=== PATIENT | female | born 2000 | race Caucasian/White ===

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

== ENCOUNTER 2021-11-04 07:14 | Emergency (ER) | payer MEDICAID, SELFPAY ==
[2021-11-04 07:29] VITALS: BP 103/65; PULSE 101; RESP 18; TEMP 37.9; O2SAT 99; BMI 20.3
[2021-11-04] MEDS: Ondansetron ODT 4 MG TAB.RAPDIS TRANSLINGU (07:35)
--- NOTE | 2021-11-04 08:07 | ED_ITS ---
HPI - General Adult General Chief complaint: General Medical Stated complaint: +Flu T-3 /Vomiting, cough Time Seen by Provider: 11/04/21 08:07 Source: patient Mode of arrival: ambulatory Limitations: no limitations History of Present Illness HPI narrative: Patient is a 21 year old female presenting to the emergency department today with influenza. Patient states that 2 days ago, she was diagnosed with influenza at [facility] and still feels generally unwell. Patient states that she would like a bag of fluids. Patient denies any dizziness, lightheadedness, abdominal pain, fever, chills, blurry vision, double vision, loss of vision, chest pain, difficulty breathing, shortness of breath, back pain, night sweats, pain with urination, increased urinary frequency, increased urinary urgency, blood in her urine or stool, syncope or a near syncopal episode, recent trauma or falls, bowel incontinence, bladder incontinence, bowel retention, bladder retention, or any other complaints at this time. Onset (ago): day(s) (4) Severity: mild Severity scale (1-10): 2 Relieving factors: none Exacerbating factors: none Associated symptoms: cough and nausea/vomiting Treatments prior to arrival: none Related Data Previous Rx's Medication Instructions Recorded ondansetron HCl 4 mg tablet 4 mg PO Q8H PRN #10 tab 07/08/20 (Zofran) acetaminophen 500 mg tablet 500 mg PO Q6H PRN #20 tab 12/09/20 (Tylenol Extra Strength) amoxicillin 875 mg-potassium 1 tab PO Q12H 7 Days #14 tab 12/09/20 clavulanate 125 mg tablet (Augmentin) benzonatate 100 mg capsule 100 mg PO TID PRN #14 cap 12/09/20 (Tessalon Perles) fluticasone propionate 50 2 spray INTRANASAL DAILY #16 g 12/09/20 mcg/actuation nasal spray,suspension (Flonase Allergy Relief) ibuprofen 400 mg tablet 400 mg PO Q6H 7 Days #28 tab 12/09/20 ondansetron 4 mg disintegrating 4 mg PO Q8H 3 Days #9 tab 11/04/21 tablet Allergies Allergy/AdvReac Type Severity Reaction Status Date / Time No Known Allergies Allergy Verified 12/09/20 11:51 Review of Systems Constitutional: Constitutional: Reports no additional constitutional complaints, Denies chills, Denies fever(s) and Denies night sweats Eyes: Eyes: Reports no additional eye complaints, Denies blurry vision, Denies change in vision, Denies diplopia, Denies eye discharge, Denies loss of vision and Denies eye pain ENT: Denies dizziness Cardiovascular: Cardiovascular: Reports no additional cardiovascular complaints, Denies chest pain, Denies lightheadedness, Denies Loss of Consciousness and Denies dyspnea Respiratory: Respiratory: Reports no additional respiratory complaints, Reports cough and Denies dyspnea Gastrointestinal: Gastrointestinal: Reports no additional gastrointestinal complaints, Denies abdominal pain, Denies melena, Denies hematochezia, Denies change in bowel habits, Denies change in stool character, Reports nausea and Reports vomiting Genitourinary: Genitourinary: Denies hematuria, Denies urinary frequency, Denies dysuria, Denies urinary incontinence, Denies urinary hesitancy and Denies urinary urgency Musculoskeletal: Musculoskeletal: Reports no additional musculoskeletal complaints, Denies numbness and Denies tingling Neurologic: Denies dizziness, Denies loss of vision, Denies numbness and Denies tingling Psychiatric: Psychiatric: Reports no additional psychiatric complaints Endocrine: Endocrine: Reports no additional endocrine complaints Hematologic/Lymphatic: Hematologic/Lymphatic: Reports no additional hematol ogic/lymphatic complaints Allergic/Immunologic: Allergic/Immunologic: Reports no additional allergic/immunologic complaints PMFSH Past Medical History Attestation statement: The following information was validated with the patient. Source: old records reviewed Social History Social History Alcohol intake: never Advance Directives: No Advance Directives Information Provided: No Physical Exam ED Vital Signs: Vital Signs - 24 hr 11/04/21 07:29 11/04/21 09:03 Temperature 100.3 F 99.7 F Pulse Rate 101 H 91 Respiratory Rate 18 17 Blood Pressure 103/65 Pulse Oximetry 99 97 BMI result Body Mass Index 20.3 Const General: cooperative, no acute distress, alert and awake Nutritional Appearance: well nourished Orientation/consciousness: patient oriented x3 Limitations: no limitations HENMT Head: Yes normal to inspection and Yes atraumatic Ears: hearing grossly normal bilaterally and external ears normal General nose exam: Normal external nose present, no nasal discharge noted and no epistaxis Face and sinus: Yes normal facial exam, No abrasion and No laceration Mouth: Normal oral and palatal mucosa present, no drooling and no muffled voice Eyes General: appearance normal, both eyes and all related structures Periorbital: periorbital findings normal Eyelids: Yes eyelids normal Conjunctivae: conjunctivae normal Pupils: Equal, round and reactive pupils present EOM: EOMs intact bilaterally Neck Neck: Yes normal visual inspection, Yes full ROM and Yes no lymphadenopathy Chest Chest palpation & inspection: normal inspection of the chest Resp Effort & Inspection: normal respiratory effort and able to speak in complete sentences Auscultation: clear to auscultation bilaterally Cardio Rate: regular rate Rhythm: regular rhythm GI Inspection: Yes normal to inspection Neuro General: patient oriented x3 and moves all extremities Cranial nerves: Yes Equal, round and reactive pupils present Cognition (Neuro): normal cognition Motor exam (neuro): 5/5 motor strength present throughout Sensory Exam: Normal double simultaneous stimulation for sensation Coordination: [id number] test normal Extrem General: Yes normal to inspection, Yes full ROM and Yes capillary refill normal Psych Appearance: grossly normal Mental Status: mental status grossly normal Affect: normal affect Attitude: cooperative Thought process: Normal thought process present Thought content: Normal thought content present Insight: Good insight present (Psych) Medical Decision Making MDM Narrative Medical decision making narrative: Patient is a 21 year old female presenting to the emergency department today with influenza, feeling generally unwell. Patient's physical exam was unremarkable. I explained my physical exam findings the patient. I answered all questions asked by the patient. Patient received Zofran and IV fluids which she stated helped her symptoms significantly. I stressed the importance of the patient taking her medication as prescribed. I stressed the importance of the patient following up with her primary care provider. I stressed the importance of the patient returning to the emergency department immediately if her symptoms were to worsen or if she were to develop any dizziness, shortness of breath, difficulty breathing, chest pain, blurry vision, loss of vision, nausea, vomiting, abdominal pain, fever, chills, back pain, or any other complaints. Patient verbalized agreement and understanding with this treatment plan and discharge. Differential Diagnosis Differential Diagnosis: Influenza Medical Records Medical records reviewed: Yes I reviewed the patient's medical records. Discharge Plan Discharge Clinical Impression: Influenza Patient Disposition: Home, Self-Care Additional Instructions: Follow up with your primary care provider. Return to the emergency department immediately if your symptoms worsen or if you develop any dizziness, shortness of breath, difficulty breathing, chest pain, blurry vision, loss of vision, nausea, vomiting, abdominal pain, fever, chills, back pain, or any other complaints. Prescriptions: New ondansetron 4 mg tablet,disintegrating 4 mg PO Q8H 3 Days Qty: 9 0RF No Action ondansetron HCl [Zofran] 4 mg tablet 4 mg PO Q8H PRN (Reason: nausea and vomiting) Qty: 10 0RF acetaminophen [Tylenol Extra Strength] 500 mg tablet 500 mg PO Q6H PRN (Reason: pain or fever) Qty: 20 0RF benzonatate [Tessalon Perles] 100 mg capsule 100 mg PO TID PRN (Reason: cough) Qty: 14 0RF ibuprofen 400 mg tablet 400 mg PO Q6H 7 Days Qty: 28 0RF fluticasone propionate [Flonase Allergy Relief] 50 mcg/actuation spray,suspension 2 spray intranasal DAILY Qty: 16 0RF Rx Instructions: administer into each nostril amoxicillin-pot clavulanate [Augmentin] 875-125 mg tablet 1 tab PO Q12H 7 Days Qty: 14 0RF Referrals: [facility] [place]] (Call to establish with a PCP if you do not already have one. If you already have a PCP, please follow up with them. ) [facility]] (Call to establish with a PCP if you do not already have one. If you already have a PCP, please follow up with them. ) [facility] [[place] Group] (Call to establish with a PCP if you do not already have one. If you already have a PCP, please follow up with them. ) Stand Alone Forms: Work/School Release Print Language: Yakut
[2021-11-04] MEDS: 0.9 % Sodium Chloride 1,000 ML 999 ML IVCONT (09:02)
[2021-11-04 09:03] VITALS: PULSE 91; RESP 17; TEMP 37.6; O2SAT 97
--- NOTE | 2021-11-04 10:25 | PC.NURSE ---
NO FURTHER VOMITING, SKIN WPD, A+OX4, STEADY GAIT, NO DIZZINESS, NAD.
== END 2021-11-04 10:26 | disposition home or self-care (01) ==
PROVIDERS: Emergency Provider Emergency Medicine Emergency Medical Services
DX: J11.1 Influenza due to unidentified influenza virus with other respiratory manifestations (principal)
CPT/HCPCS: 96360; 99282; 99284

== ENCOUNTER 2022-12-03 23:53 | Emergency (ER) | payer MEDICAID, SELFPAY ==
--- NOTE | 2022-12-03 23:54 | ECG_ITS ---
Test Reason : CP Blood Pressure : / mmHG Vent. Rate : 063 BPM Atrial Rate : 063 BPM P-R Int : 154 ms QRS Dur : 076 ms QT Int : 386 ms P-R-T Axes : 000 066 145 degrees QTc Int : 395 ms Normal sinus rhythm with sinus arrhythmia Possible Lateral infarct , age undetermined - could be normal variant Possible Inferior infarct , age undetermined - could be normal variant Borderline ECG No previous ECGs available Referred By: Generic ED Physician Electronically Signed By:RENETTA CABRERA
[2022-12-04 00:04] VITALS: BP 105/63; PULSE 64; RESP 16; TEMP 36.8; O2SAT 99; BMI 21.1
[2022-12-04 00:49] LABS: Hematocrit 38.9 % (37.0-47.0); Hemoglobin 13.2 g/dl (12.0-16.0); Mean Corpuscular HGB Conc 33.9 g/dl (31.0-35.0); Mean Corpuscular Hemoglobin 29.5 pg (27.0-33.0); Mean Platelet Volume 10.3 fL (9.4-12.3); Platelet Count 205 X10*3/uL (160-400); Red Blood Count 4.47 X10*6/uL (4.20-5.50); Red Cell Distribution Width 13.2 % (11.0-16.0); White Blood Count 9.5 X10*3/uL (4.8-10.8)
[2022-12-04 01:05] LABS: Anion Gap 13 (12-20); Blood Urea Nitrogen 11 mg/dL (9-16); Calcium 9.7 mg/dL (8.4-10.2); Carbon Dioxide 22 mmol/L (22-29); Chloride 107 mmol/L (96-108); Creatinine Clr Calc Pharmacy 126.5; Estimated Glomerular Filt Rate > 60; Glucose Random 87 mg/dL (60-115); Potassium 3.7 mmol/L (3.3-5.1); Sodium 138 mmol/L (135-145)
[2022-12-04 01:09] VITALS: BP 110/63; PULSE 64; RESP 18; O2SAT 99
[2022-12-04 01:12] LABS: Troponin-I High Sensitivity < 2.7 ng/L (<3.5-17.0)
--- NOTE | 2022-12-04 01:20 | ED.CHESTPAIN ---
HPI - Chest Pain General Chief Complaint: Chest Pain Stated Complaint: SoB, CP Time Seen by Provider: 12/04/22 01:20 Source: patient Mode of arrival: ambulatory Limitations: no limitations History of Present Illness HPI narrative: 22-year-old female who presents emergency department for evaluation of sudden onset of left-sided chest pain that occurred yesterday morning. The patient states that she was sleeping in the pain woke her up from sleep. She points to the left side of her cheek anterior chest when asked to localize the pain. She describes the pain is a constant, sharp pain which is worse with breathing. Patient is a breath or dyspnea on exertion. She denied fever, chills, cough, nausea, vomiting diarrhea, myalgias or arthralgias. This is the patient's 1st episode of this type of chest pain. The patient denied pain or swelling in her lower extremities. She has not gone on any long trips recently. She is not on control pills. Related Data Previous Rx's Medication Instructions Recorded ondansetron HCl 4 mg tablet 4 mg PO Q8H PRN nausea and 07/08/20 (Zofran) vomiting #10 tabs acetaminophen 500 mg tablet 500 mg PO Q6H PRN pain or fever 12/09/20 (Tylenol Extra Strength) #20 tabs amoxicillin 875 mg-potassium 1 tab PO Q12H 7 days #14 tabs 12/09/20 clavulanate 125 mg tablet (Augmentin) benzonatate 100 mg capsule 100 mg PO TID PRN cough #14 caps 12/09/20 (Tessalon Perles) fluticasone propionate 50 2 spray intranasal DAILY #16 grams 12/09/20 mcg/actuation nasal spray,suspension (Flonase Allergy Relief) ibuprofen 400 mg tablet 400 mg PO Q6H 7 days #28 tabs 12/09/20 ondansetron 4 mg disintegrating 4 mg PO Q8H 3 days #9 tabs 11/04/21 tablet Allergies Allergy/AdvReac Type Severity Reaction Status Date / Time No Known Allergies Allergy Verified 12/09/20 11:51 Review of Systems Review of Systems: Yes all other systems are reviewed and are negative [facility] Past Medical History [facility] Narrative: Past medical history: Gastroparesis as a child. Past surgical history: None. Social history: She denies tobacco use. She denies alcohol use. She smokes marijuana daily. Social History Social History Alcohol intake: never Smoked in Last 30 Days: No Use of substances other than those prescribed or required for medical reasons: Yes Substance Use Type: Marijuana Substance Use Frequency: Daily Advance Directives: No Advance Directives Information Provided: No Physical Exam Vital Signs: Vital Signs: Last Vital Signs Temp 98.3 F 12/04/22 00:04 Pulse 60 12/04/22 02:47 Resp 18 12/04/22 02:47 BP 117/60 12/04/22 02:47 Pulse Ox 98 12/04/22 02:47 O2 Del Method Room Air 12/04/22 02:47 BMI result Body Mass Index 21.1 Const: General: cooperative and no acute distress Orientation/consciousness: oriented to person and oriented to place Limitations: no limitations HEENT: Head: Yes normal to inspection, Yes normocephalic and Yes atraumatic Ears: external ears normal General nose exam: Normal external nose present Face and sinus: Yes normal facial exam Mouth: Normal oral and palatal mucosa present Throat: Yes posterior oropharynx normal Eyes: General: appearance normal, both eyes and all related structures Neck: Neck: Yes normal visual inspection, Yes no lymphadenopathy, Yes trachea midline and Yes supple Chest: Other: [id number] left chest wall tenderness Resp: Effort & Inspection: normal respiratory effort and able to speak in complete sentences Auscultation: clear to auscultation bilaterally Cardio: Rate: regular rate Rhythm: regular rhythm Heart sounds: S1 normal heart sound present, S2 normal heart sound present and no murmurs GI: Inspection: Yes normal to inspection Palpation (GI): Soft to palpation, nontender and no guarding Auscultation: normal bowel sounds : General: Yes no CVA tenderness Back/Spine/Pelvis: Back: no CVA tenderness Neuro: General: oriented to person and oriented to place Cognition (Neuro): normal cognition Motor exam (neuro): 5/5 motor strength present throughout Extrem: General: Yes normal to inspection Psych: Appearance: grossly normal Speech and movement: Normal speech and movement present Affect: normal affect Attitude: cooperative Medications Administered Discontinued Medications Generic Name Dose Route Start Last Admin Trade Name Freq PRN Reason Stop Dose Admin Ketorolac Tromethamine 60 mg 12/04/22 01:48 12/04/22 01:56 Ketorolac Tromethamine 60 Mg/2 Ml Vial IM 12/04/22 01:49 60 mg ONCE ONE Administration Medical Decision Making Medical Decision Making [facility] Narrative: 22-year-old female with no past medical history who presents emergency department for evaluation of sudden onset left-sided anterior chest pain which woke her up from sleep yesterday. The pain is a sharp pain which is worse with breathing. She had no other concerning symptoms. The patient has not gone on any long trips, has no pain or swelling in her lower extremities, and is not on control pills. Vital signs were normal. Physical examination. Physical examination did reveal left-sided chest wall tenderness. Following tests were ordered: CBC, CMP, troponin, EKG, chest x-ray 0137: EKG was unremarkable Chest x-ray revealed no cause for pain Labs were unremarkable. I did add a D-dimer to the patient's laboratory evaluation. 0311: D-dimer was below detectable limits which is reassuring and rules out pulmonary emboli Patient's pain is consistent with a viral syndrome/pleurisy She was advised to take ibuprofen 40 mg 3 times a day as needed for pain Differential Diagnosis Differential diagnosis includes was not limited to costochondritis, pleurisy, pneumonia, pneumothorax, pulmonary embolism Admission/Observation Consideration of admission/observation: Escalation of care including admission/observation considered Lab Data [facility] Lab Attestation statement: I reviewed the patient's lab results. My independent interpretation of the patient's laboratory evaluation is as follows: No significant abnormalities 12/04/22 00:42 12/04/22 00:42 Labs: Lab Results 12/04/22 12/04/22 12/04/22 Range/Units 00:42 00:42 00:42 WBC 9.5 (4.8-10.8) X10*3/uL RBC 4.47 (4.20-5.50) X10*6/uL Hgb 13.2 (12.0-16.0) g/dl Hct 38.9 (37.0-47.0) % MCV 87.0 (80.0-98.0) fL MCH 29.5 (27.0-33.0) pg MCHC 33.9 (31.0-35.0) g/dl RDW 13.2 (11.0-16.0) % Plt Count 205 (160-400) X10*3/uL MPV 10.3 (9.4-12.3) fL Absolute Nucleated RBC 0.000 (0.0-0.012) X10*3/uL Nucleated RBC % (auto) 0.0 (0.0-0.2) /100WBC D-Dimer High Sensitivty NG/ML Sodium 138 (135-145) mmol/L Potassium 3.7 (3.3-5.1) mmol/L Chloride 107 (96-108) mmol/L Carbon Dioxide 22 (22-29) mmol/L Anion Gap 13 (12-20) BUN 11 (9-16) mg/dL Creatinine 0.68 (0.5-1.4) mg/dL Estim Creat Clear Calc 126.5 Estimated GFR > 60 Random Glucose 87 (60-115) mg/dL Calcium 9.7 D (8.4-10.2) mg/dL Troponin I High Sens < 2.7 (<3.5-17.0) ng/L 12/04/22 Range/Units 02:51 WBC (4.8-10.8) X10*3/uL RBC (4.20-5.50) X10*6/uL Hgb (12.0-16.0) g/dl Hct (37.0-47.0) % MCV (80.0-98.0) fL MCH (27.0-33.0) pg MCHC (31.0-35.0) g/dl RDW (11.0-16.0) % Plt Count (160-400) X10*3/uL MPV (9.4-12.3) fL Absolute Nucleated RBC (0.0-0.012) X10*3/uL Nucleated RBC % (auto) (0.0-0.2) /100WBC D-Dimer High Sensitivty < 150 NG/ML Sodium (135-145) mmol/L Potassium (3.3-5.1) mmol/L Chloride (96-108) mmol/L Carbon Dioxide (22-29) mmol/L Anion Gap (12-20) BUN (9-16) mg/dL Creatinine (0.5-1.4) mg/dL Estim Creat Clear Calc Estimated GFR Random Glucose (60-115) mg/dL Calcium (8.4-10.2) mg/dL Troponin I High Sens (<3.5-17.0) ng/L Independent Interpretation I performed an independent interpretation of an: EKG and Plain X-Ray Interpretation: My independent interpretation patient's chest x-ray is as follows: No acute disease. My independent interpretation of the patient's 12 EKG done at 23:57 hours is as follows: Normal sinus rhythm rate of 63, normal DE interval, QRS duration QTC interval, inverted T-wave in 1 and 1,, Q-wave in V1, no ST segment elevation, no ST segment depression, no PACs, no PVCs Radiology Impression Discussion of test interpretation with radiology: I have reviewed the radiologist's reading. Radiologist Impression: XR chest 1V IMPRESSION: Unremarkable examination. Dictated By:MARCIAL MYERS MD Discharge Plan Discharge Clinical Impression: Pleurisy Chest pain Qualifiers: Chest pain type: unspecified Qualified Code(s): R07.9 - Chest pain, unspecified Patient Disposition: Home, Self-Care Instructions: Pleurisy (ED) Additional Instructions: Your blood work was normal which is reassuring Your EKG was normal Your chest x-ray was normal. Your symptoms are consistent with pleurisy which is inflammation of the lining of the lungs often caused by a virus You received Toradol intramuscularly which is a strong anti-inflammatory medicine Insert pain medication Take ibuprofen 200 mg pills, 2 pills every 6 hours as needed for pain. Follow-up with your doctor in 2 days. Please return to the emergency department if your symptoms get worse or if you develop any symptoms that are concerning to you. Prescriptions: No Action ondansetron HCl [Zofran] 4 mg tablet 4 mg PO Q8H PRN (Reason: nausea and vomiting) Qty: 10 0RF acetaminophen [Tylenol Extra Strength] 500 mg tablet 500 mg PO Q6H PRN (Reason: pain or fever) Qty: 20 0RF benzonatate [Tessalon Perles] 100 mg capsule 100 mg PO TID PRN (Reason: cough) Qty: 14 0RF ibuprofen 400 mg tablet 400 mg PO Q6H 7 Days Qty: 28 0RF fluticasone propionate [Flonase Allergy Relief] 50 mcg/actuation spray,suspension 2 spray intranasal DAILY Qty: 16 0RF Rx Instructions: administer into each nostril amoxicillin-pot clavulanate [Augmentin] 875-125 mg tablet 1 tab PO Q12H 7 Days Qty: 14 0RF ondansetron 4 mg tablet,disintegrating 4 mg PO Q8H 3 Days Qty: 9 0RF
[2022-12-04] MEDS: Ketorolac Tromethamine 60 MG/2 ML VIAL IM (01:56)
[2022-12-04 02:47] VITALS: BP 117/60; PULSE 60; RESP 18; O2SAT 98
[2022-12-04 03:04] LABS: D Dimer High Sensitivity < 150 NG/ML
== END 2022-12-04 03:53 | disposition home or self-care (01) ==
PROVIDERS: Emergency Provider Emergency Medicine Emergency Medical Services
DX: R07.89 Other chest pain (principal); R06.02 Shortness of breath; R09.1 Pleurisy; Z79.899 Other long term (current) drug therapy
CPT/HCPCS: 36415; 80048; 84484; 85027; 85379; 93005; 96372; 96374; 99284; 99285; J1885